=== PATIENT | female | born 2000 | race Caucasian/White ===

== ENCOUNTER 2019-05-17 12:51 | Emergency (ER) | payer MEDICAID, OTHER ==
[~2019-05-17] VITALS: Ht 171.5 cm; Wt 64.3 kg
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
[2019-05-17] MEDS ORDERED: IBUP-1780 PO (13:47)
[2019-05-17] MEDS ORDERED: AMOX1TAB12 PO (13:47)
[2019-05-17] MEDS ORDERED: TRAM50TA2 PO (13:47)
[2019-05-17 13:55] VITALS: BP 124/73
== END 2019-05-17 13:55 | disposition home or self-care (01) ==
LOC: ER FS 12:53
DX: S00.83XA Contusion of other part of head, initial encounter (principal); S00.03XA Contusion of scalp, initial encounter; S10.93XA Contusion of unspecified part of neck, initial encounter; S02.5XXA Fracture of tooth (traumatic), initial encounter for closed fracture; T74.11XA Adult physical abuse, confirmed, initial encounter; K08.89 Other specified disorders of teeth and supporting structures; Y04.8XXA Assault by other bodily force, initial encounter; Y07.03 Male partner, perpetrator of maltreatment and neglect
CPT/HCPCS: 99282

== ENCOUNTER 2021-01-05 12:40 | Emergency (ER) | payer MEDICAID ==
[~2021-01-05] VITALS: Ht 162 cm; Wt 68.0 kg
[~2021-01-05 12:40] MED LIST: AMOX1TAB12 PO; IBUP-1780 PO; TRM50T PO
[2021-01-05 12:45] VITALS: BP 130/68
[2021-01-05 12:59] LABS: BILIRUBIN,URINE NEGATIVE (NEGATIVE); CLARITY,URINE CLEAR; COLOR,URINE YELLOW; GLUCOSE, URINE (UA) NEGATIVE (NEGATIVE); KETONES,URINE NEGATIVE (NEGATIVE); LEUKOCYTE ESTERASE ,URINE TRACE (NEGATIVE); NITRITE,URINE NEGATIVE (NEGATIVE); PROTEIN,URINE NEGATIVE (NEGATIVE)
[2021-01-05 13:00] LABS: BACTERIA,URINE TRACE /HPF
[2021-01-05] MEDS ORDERED: CYCL10TA9 PO (13:15)
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
--- NOTE | 2021-01-05 14:03 | Diagnostic Imaging Report ---
INDICATION: Back pain. TIME OF EXAM: 12:59 PM. FINDINGS: Three views of the lumbar spine show normal curvature and alignment. The vertebral body heights and disc spaces are well-maintained. No fracture or subluxation is identified. IMPRESSION: No acute bony abnormality is detected. Dictated by: Dictated on workstation # [id number]
== END 2021-01-05 13:18 | disposition home or self-care (01) ==
LOC: EDUNIT# 12:40 → ER FS 12:42
DX: M54.5 Low back pain (principal); J45.909 Unspecified asthma, uncomplicated; F17.210 Nicotine dependence, cigarettes, uncomplicated
CPT/HCPCS: 72100; 81000; 84703

== ENCOUNTER 2022-06-14 12:58 | Emergency (ER) | payer MEDICAID ==
[~2022-06-14] VITALS: Ht 167.7 cm; Wt 72.7 kg
[~2022-06-14 12:58] MED LIST changes: +CYCL10TA25 PO
[2022-06-14 13:02] VITALS: BP 128/76
--- NOTE | 2022-06-14 13:13 | ED GI ---
General Stated Complaint: NAUSEA;VOMITING History of Present Illness Date Seen by Provider: Jun 14, 2022 Time Seen by Provider: 13:13 Initial Comments 22-year-old female presents with nausea and vomiting. Patient reports that she is approximately 9 weeks . That she thinks she is having severe morning sickness. Is been going on for at least a week to 10 days. She had this with her previous . She was seen by her primary care provider and was given a 1 week Zofran prescription but has had minimal improvement. She reports that she has an appointment with her stave grader next week. She has maybe some mild chills. She reports is very similar to her previous pregnancies morning sickness. Patient presents today because she reports that she is having a hard time keeping anything down. Allergies and Home Medications Allergies Coded Allergies: No Known Drug Allergies (Unverified , 05/17/19) Patient Home Medication List Home Medication List Reviewed: Yes Amoxicillin/Potassium Clav (Amox Tr-K Clv 875-125 mg Tab) 1 Each Tablet, 1 EACH PO BID Prescribed by: CHRISTINA ARMANDO on 05/17/19 1347 Cyclobenzaprine HCl (Cyclobenzaprine HCl) 10 Mg Tablet, 10 MG PO Q8H PRN for SPASMS Prescribed by: BETO CASILLAS on 01/05/21 1315 Ibuprofen (Ibuprofen) 800 Mg Tablet, 800 MG PO Q8H PRN for PAIN Prescribed by: CHRISTINA ARMANDO on 05/17/19 1347 Tramadol HCl (Tramadol HCl) 50 Mg Tablet, 50 MG PO Q6H PRN for PAIN Prescribed by: CHRISTINA ARMANDO on 05/17/19 1347 Review of Systems Review of Systems Constitutional: chills, fever (subjective) Respiratory: Denies Cough, Denies Shortness of Air Cardiovascular: Denies Chest Pain, Denies Palpitations Gastrointestinal: See HPI, Nausea, Vomiting Genitourinary: No Symptoms Reported Musculoskeletal: no symptoms reported Skin: no symptoms reported Psychiatric/Neurological: No Symptoms Reported Endocrine: No Symptoms Reported Past Xqtiyxx-Trcywf-Xujvuf Hx Seasonal Allergies Seasonal Allergies: No Past Medical History Surgeries: No Respiratory: Yes Asthma Cardiac: No Neurological: No Genitourinary: No Gastrointestinal: No Musculoskeletal: No Endocrine: No HEENT: No Cancer: No Psychosocial: Yes Anxiety, Depression Integumentary: No Physical Exam Vital Signs Vital Signs - First Documented 06/14/22 13:02 Temp 36.4 Pulse 109 Resp 16 B/P (MAP) 128/76 (93) O2 Delivery Room Air Capillary Refill : Height/Weight/BMI Height: '" Weight: lbs. oz. kg; 25.00 BMI Method: General Appearance: WD/WN, no apparent distress Neck: full range of motion, supple Respiratory: lungs clear, normal breath sounds Cardiovascular: normal peripheral pulses, regular rate, rhythm Gastrointestinal: soft; No distended, No guarding Neurologic/Psychiatric: alert, normal mood/affect, oriented x 3 Skin: normal color, warm/dry Progress/Results/Core Measures Results/Orders Lab Results Laboratory Tests Test 06/14/22 13:24 Range/Units Influenza Type A (RT-PCR) Not Detected Not Detecte Influenza Type B (RT-PCR) Not Detected Not Detecte My Orders Orders - KAREN ROSAS DO Promethazine Injection (Phenergan Injec (06/14/22 13:16) Lactated Ringers (Lr 1000 Ml Iv Solution (06/14/22 13:16) Influenza A And B By Pcr (06/14/22 13:16) Famotidine Injection (Pepcid Injection) (06/14/22 13:45) Vital Signs/I&O 06/14/22 13:02 Temp 36.4 Pulse 109 Resp 16 B/P (MAP) 128/76 (93) O2 Delivery Room Air Progress Progress Note : Progress Note Patient is feeling significantly better following treatment. At this time she would like to try to go home and see how she does. Patient will be discharged with doxylamine and some Phenergan suppositories for as needed. Patient should keep her OB appointment on Saturday. She should return to the ER as needed Departure Impression Primary Impression: Hyperemesis gravidarum Disposition: HOME, SELF-CARE Condition: Stable Departure-Patient Inst. Referrals: CLAIRE GU (PCP) Primary Care Physician [facility] (Family) Primary Care Physician Patient Instructions: Hyperemesis Gravidarum Add. Discharge Instructions: Clear liquid diet, advance as tolerated. You may also try Benadryl 50 mg every 6 hours. Please keep your appointment with your stave grader next week. Return to the ER as needed Scripts Promethazine HCl (Promethazine Tablet) 25 Mg Tablet 25 MG PO Q12H PRN for NAUSEA/VOMITING, #5 TAB 0 Refills Prov: KAREN ROSAS DO 06/14/22 Doxylamine Succinate/Vit B6 (Doxylamine-Pyridoxine 10-10 mg) 10 Mg-10 Mg Tablet.dr 1 EACH PO Q4H PRN for NAUSEA/VOMITING-1ST LINE, #30 TAB Prov: KAREN ROSAS DO 06/14/22 KAREN ROSAS DO Jun 14, 2022 13:13
[2022-06-14] MEDS ORDERED: PROMETHAZINE INJ 25 MG/ML (PHENERGAN) AMP IVP STA (13:16)
[2022-06-14] MEDS ORDERED: LACTATED RINGERS 1,000 ML IV STA (13:16)
[2022-06-14] MEDS ORDERED: FAMOTIDINE 20MG/2ML IV (PEPCID) IV STA (13:45)
[2022-06-14] MEDS ORDERED: DOXY1TAB8 PO (14:08)
[2022-06-14] MEDS ORDERED: PROM25TA14 PO (14:08)
== END 2022-06-14 14:12 | disposition home or self-care (01) ==
LOC: EDUNIT# 12:58 → ER FS 13:00
DX: O21.0 Mild hyperemesis gravidarum (principal); Z28.310 Unvaccinated for COVID-19; Z3A.09 9 weeks gestation of pregnancy
CPT/HCPCS: 87636; 99283

== ENCOUNTER 2023-02-04 15:40 | Emergency (ER) | payer MEDICAID ==
[~2023-02-04] VITALS: Ht 167 cm; Wt 74.2 kg
[~2023-02-04 15:40] MED LIST changes: +DOXY1TAB8 PO; +PROM25TA14 PO
[2023-02-04 15:49] VITALS: BP 129/69
[2023-02-04] MEDS ORDERED: KETOROLAC 60 MG/2 ML VIAL IM ONE (16:00)
--- NOTE | 2023-02-04 16:18 | Diagnostic Imaging Report ---
PROCEDURE: CT head and CT cervical spine without contrast. TECHNIQUE: Multiple contiguous axial images were obtained through the brain and cervical spine without the use of intravenous contrast. Sagittal and coronal reformations through the cervical spine were then performed. Auto Exposure Controls were utilized during the CT exam to meet ALARA standards for radiation dose reduction. INDICATION: Neck pain and radial palsy. CT HEAD: CT images of the head were obtained. FINDINGS: Ventricles and sulci are within normal limits for size. There is no intracranial hemorrhage identified. There is no abnormal mass effect or shift of midline structures. IMPRESSION: Unremarkable CT of the head. CT CERVICAL SPINE: Multiple contiguous axial CT images of the cervical spine were obtained with sagittal and coronal reformatted images produced. FINDINGS: There is reversal of normal cervical lordosis. Vertebral body heights and disc spaces are maintained. Prevertebral soft tissues are unremarkable, and there is no evidence of paraspinous hematoma. IMPRESSION: Reversal of normal cervical lordosis which may be due to positioning or muscle spasm. There is, otherwise, no CT evidence of acute cervical spinal abnormality. Dictated by: Dictated on workstation # [id number]
[2023-02-04] MEDS ORDERED: METH4TAB10 PO (16:39)
[2023-02-04] MEDS ORDERED: ACHD5005 PO (16:39)
[2023-02-04] MEDS ORDERED: IBUP-1780 PO (16:39)
--- NOTE | 2023-02-04 16:41 | ED General ---
General Chief Complaint: General Problems/Pain Stated Complaint: R ARM PAIN, NECK PAIN Nursing Triage Note: Patient has presented to ER with cc of neck pain and stiffness and numbness in her right forear. She woke up Bo morning with the pain. She denies any known injury or trauma. History of Present Illness Date Seen by Provider: Feb 04, 2023 Time Seen by Provider: 15:49 Initial Comments 22-year-old right-handed female patient with history of normal vaginal delivery 4 weeks ago without breast-feeding complaining of neck pain and right forearm weakness and numbness and wrist drop for the last 3 days. Patient states that she woke up 3 days ago with pain in posterior of her neck as a constant pain and numbness of her right forearm and drop of her wrist that did not get better with movement of her hand. Patient stated she took Aleve and Tylenol without improvement of her pain and rated her pain 7/10. Patient denies other focal neurodeficit, fever and chills, injury, using alcohol or drugs and oversleeping on her right side, history of the same problem. Allergies and Home Medications Allergies Coded Allergies: No Known Drug Allergies (Unverified , 05/17/19) Patient Home Medication List Home Medication List Reviewed: Yes Amoxicillin/Potassium Clav (Amox Tr-K Clv 875-125 mg Tab) 1 Each Tablet, 1 EACH PO BID Prescribed by: CHRISTINA ARMANDO on 05/17/19 1347 Cyclobenzaprine HCl (Cyclobenzaprine HCl) 10 Mg Tablet, 10 MG PO Q8H PRN for SPASMS Prescribed by: BETO CASILLAS on 01/05/21 1315 Doxylamine Succinate/Vit B6 (Doxylamine-Pyridoxine 10-10 mg) 10 Mg-10 Mg Tablet.dr, 1 EACH PO Q4H PRN for NAUSEA/VOMITING-1ST LINE Prescribed by: KAREN ROSAS on 06/14/22 1408 Hydrocodone/Acetaminophen (Hydrocodone-Acetamin 5-325 mg) 5 Mg-325 Mg Tablet, 1 TAB PO Q6H PRN for PAIN-MODERATE (5-7) Prescribed by: Mary cobb on 02/04/23 1641 Ibuprofen (Ibuprofen) 800 Mg Tablet, 800 MG PO Q8H PRN for PAIN Prescribed by: CHRISTINA ARMANDO on 05/17/19 1347 Ibuprofen (Ibuprofen) 800 Mg Tablet, 800 MG PO Q8H PRN for PAIN Prescribed by: Mary cobb on 02/04/23 1639 Methylprednisolone (Methylprednisolone Dose Pack) 4 Mg Tab.ds.pk, 4 MG PO UD Prescribed by: Mary cobb on 02/04/23 1639 Promethazine HCl (Promethazine Tablet) 25 Mg Tablet, 25 MG PO Q12H PRN for NAUSEA/VOMITING Prescribed by: KAREN ROSAS on 06/14/22 1408 Tramadol HCl (Tramadol HCl) 50 Mg Tablet, 50 MG PO Q6H PRN for PAIN Prescribed by: CHRISTINA ARMANDO on 05/17/19 1347 Review of Systems Review of Systems Constitutional: no symptoms reported EENTM: no symptoms reported Respiratory: no symptoms reported Cardiovascular: no symptoms reported Gastrointestinal: no symptoms reported Genitourinary: no symptoms reported Musculoskeletal: see HPI Skin: no symptoms reported Psychiatric/Neurological: See HPI All Other Systems Reviewed Negative Unless Noted: Yes Past Nmlwfpp-Qyvdxw-Czpowz Hx Patient Social History Tobacco Use?: Yes Tobacco type used: Cigarettes Substance use?: No Alcohol Use?: No Seasonal Allergies Seasonal Allergies: No Past Medical History Surgeries: No Respiratory: Yes Asthma Cardiac: No Neurological: No Genitourinary: No Gastrointestinal: No Musculoskeletal: No Endocrine: No HEENT: No Cancer: No Psychosocial: Yes Anxiety, Depression Integumentary: No Physical Exam Vital Signs Vital Signs - First Documented 02/04/23 15:49 Temp 36.9 Pulse 90 Resp 10 B/P (MAP) 129/69 (89) Pulse Ox 100 O2 Delivery Room Air Capillary Refill : Height, Weight, BMI Height: '" Weight: lbs. oz. kg; 26.00 BMI Method: General Appearance: No Apparent Distress HEENT: PERRL/EOMI, Normal ENT Inspection, Pharynx Normal Neck: Normal Inspection, Non Tender, Supple; No Tender Midline Respiratory: Chest Non Tender, Lungs Clear, Normal Breath Sounds Cardiovascular: Regular Rate, Rhythm, No Edema, No Gallop Back: Normal Inspection, No CVA Tenderness Extremity: Normal Capillary Refill, Non Tender, Other (Right wrist drop and hypoesthesia of elbow down to the fingers) Neurologic/Psychiatric: Alert, Oriented x3, Normal Mood/Affect, Motor Weakness (Right wrist drop) Skin: Normal Color, Warm/Dry Lymphatic: No Adenopathy Progress/Results/Core Measures Suspected Sepsis SIRS Temperature: Pulse: 90 Respiratory Rate: 10 Blood Pressure 129 /69 Mean: 89 Results/Orders My Orders Orders - MARY COBB MD Ct Head/Cervical Spine Wo (02/04/23 15:56) Ketorolac Injection (Toradol Injection) (02/04/23 16:00) Medications Given in ED Current Medications Medications Dose Ordered Sig/Markus Route Start Time Stop Time Status Last Admin Dose Admin Ketorolac Tromethamine 60 mg ONCE ONCE IM 02/04/23 16:00 02/04/23 16:01 DC 02/04/23 16:14 60 MG Vital Signs/I&O 02/04/23 15:49 Temp 36.9 Pulse 90 Resp 10 B/P (MAP) 129/69 (89) Pulse Ox 100 O2 Delivery Room Air Capillary Refill : Blood Pressure Mean: 89 Progress Note : Progress Note Patient with right wrist drop and neck pain for the last 3 days that did not get better. Patient had unremarkable CT head and cervical spine. Patient treated with Toradol IM in ER( no ride to go home). Patient had right wrist drop and Velcro wrist splint was applied. Patient advised to follow-up with primary care physician for possible ordering physical therapy and apply ice on her neck. Prescription for Medrol Dosepak and ibuprofen and [place] was given. Patient advised to move her hands frequently. Plan to discharge patient home with diagnosis of Saturday night radial palsy. Diagnostic Imaging Diagonstic Imaging: CT Plain Films/CT/US/NM/MRI: head (And cervical spine) Comments CT head and cervical spine interpreted by radiologist and reviewed by me and did not show acute finding. [facility] [place], [place] NAME: [facility] REC#: [id number] PT STATUS: REG ER : 2000 PHYSICIAN: MARY COBB MD ADMIT DATE: 02/04/23/ER FS Draft Date of Exam:02/04/23 CT HEAD/CERVICAL SPINE WO PROCEDURE: CT head and CT cervical spine without contrast. TECHNIQUE: Multiple contiguous axial images were obtained through the brain and cervical spine without the use of intravenous contrast. Sagittal and coronal reformations through the cervical spine were then performed. Auto Exposure Controls were utilized during the CT exam to meet ALARA standards for radiation dose reduction. INDICATION: Neck pain and radial palsy. CT HEAD: CT images of the head were obtained. FINDINGS: Ventricles and sulci are within normal limits for size. There is no intracranial hemorrhage identified. There is no abnormal mass effect or shift of midline structures. IMPRESSION: Unremarkable CT of the head. CT CERVICAL SPINE: Multiple contiguous axial CT images of the cervical spine were obtained with sagittal and coronal reformatted images produced. FINDINGS: There is reversal of normal cervical lordosis. Vertebral body heights and disc spaces are maintained. Prevertebral soft tissues are unremarkable, and there is no evidence of paraspinous hematoma. IMPRESSION: Reversal of normal cervical lordosis which may be due to positioning or muscle spasm. There is, otherwise, no CT evidence of acute cervical spinal abnormality. Dictated on workstation # [id number] Dict: 02/04/23 1614 Trans: 02/04/23 1617 [id number] Interpreted by: NOLVIA VILLAGRAN MD Electronically signed by: Departure Impression Primary Impression: Acute radial nerve palsy of right upper extremity Additional Impressions: Acute cervical myofascial strain Qualified Codes: S16.1XXA - Strain of muscle, fascia and tendon at neck level, initial encounter Right wrist drop Disposition: HOME, SELF-CARE Condition: Stable Departure-Patient Inst. Referrals: CLAIRE GU (PCP) Primary Care Physician [facility]DENISE (Family) Primary Care Physician Patient Instructions: Radial Nerve Entrapment, Cervical Sprain ED Add. Discharge Instructions: Apply ice on your neck Follow-up with your primary care physician in 2 to 3 days for possible physical therapy of your right upper extremity Use provided wrist splint Return to ER as needed All discharge instructions reviewed with patient and/or family. Voiced understanding. Scripts Hydrocodone/Acetaminophen (Hydrocodone-Acetamin 5-325 mg) 5 Mg-325 Mg Tablet 1 TAB PO Q6H PRN for PAIN-MODERATE (5-7), #12 TAB Prov: MARY COBB MD 02/04/23 Methylprednisolone (Methylprednisolone Dose Pack) 4 Mg Tab.ds.pk 4 MG PO UD for asthma for 6 Days, #21 PKG PER DOSE PACK INSTRUCTIONS Prov: MARY COBB MD 7/24/23 Ibuprofen (Ibuprofen) 800 Mg Tablet 800 MG PO Q8H PRN for PAIN, #30 TAB 0 Refills Prov: MARY COBB MD 02/04/23 MARY COBB MD Feb 04, 2023 16:41
== END 2023-02-04 16:43 | disposition home or self-care (01) ==
LOC: EDUNIT# 15:40 → ER FS 15:41
DX: O9A.23 Injury, poisoning and certain other consequences of external causes complicating the puerperium (principal); S16.1XXA Strain of muscle, fascia and tendon at neck level, initial encounter; O90.89 Other complications of the puerperium, not elsewhere classified; G56.31 Lesion of radial nerve, right upper limb; M21.331 Wrist drop, right wrist; O99.335 Smoking (tobacco) complicating the puerperium; F17.210 Nicotine dependence, cigarettes, uncomplicated; X58.XXXA Exposure to other specified factors, initial encounter
CPT/HCPCS: 70450; 72125

== ENCOUNTER 2023-03-20 20:21 | Emergency (ER) | payer MEDICAID ==
[~2023-03-20] VITALS: Ht 170 cm; Wt 72.5 kg
[~2023-03-20 20:21] MED LIST changes: +ACHD5005 PO; +METH4TAB10 PO
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
[2023-03-20 21:09] LABS: BASOPHILS # (AUTO) 0.1 10^3/uL (0.0-0.1); BASOPHILS % (AUTO) 0 % (0-10); EOSINOPHILS # (AUTO) 0.3 10^3/uL (0.0-0.3); EOSINOPHILS % (AUTO) 1 % (0-10); HEMATOCRIT 39 % (35-52); HEMOGLOBIN 12.1 g/dL (11.5-16.0); LYMPHOCYTES # (AUTO) 1.8 10^3/uL (1.0-4.0); LYMPHOCYTES % (AUTO) 10 % (12-44); MEAN CORPUSCULAR HEMOGLOBIN 26 pg (25-34); MEAN CORPUSCULAR HGB CONC 31 g/dL (32-36); MEAN CORPUSCULAR VOLUME 82 fL (80-99); MEAN PLATELET VOLUME 10.2 fL (9.0-12.2); MONOCYTES # (AUTO) 0.6 10^3/uL (0.0-1.0); MONOCYTES % (AUTO) 4 % (0-12); NEUTROPHILS # (AUTO) 14.9 10^3/uL (1.8-7.8); NEUTROPHILS % (AUTO) 83 % (42-75); PLATELET COUNT 309 10^3/uL (130-400)
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
[2023-03-20 21:14] LABS: PROTHROMBIN TIME PATIENT 13.5 SEC (12.2-14.7)
[2023-03-20 21:18] LABS: CHLORIDE 108 MMOL/L (98-107); POTASSIUM 4.2 MMOL/L (3.6-5.0); SODIUM 140 MMOL/L (135-145)
[2023-03-20 21:19] LABS: ALBUMIN 4.4 GM/DL (3.2-4.5)
[2023-03-20 21:20] LABS: CALCIUM 9.6 MG/DL (8.5-10.1)
[2023-03-20 21:21] LABS: TRIGLYCERIDES 83 MG/DL (<150); VLDL CHOLESTEROL 17 MG/DL (5-40)
[2023-03-20 21:22] LABS: CARBON DIOXIDE 22 MMOL/L (21-32); GLUCOSE 92 MG/DL (70-105); TOTAL PROTEIN 7.2 GM/DL (6.4-8.2)
[2023-03-20 21:23] LABS: BILIRUBIN,TOTAL 0.4 MG/DL (0.1-1.0)
[2023-03-20 21:24] LABS: FIBRIN DEGRADATION PRODUCTS 11.59 UG/ML (0.00-0.49); PHOSPHORUS 2.6 MG/DL (2.3-4.7)
[2023-03-20 21:25] LABS: ALKALINE PHOSPHATASE 74 U/L (40-136); CREATININE SERUM 0.77 MG/DL (0.60-1.30); GFR ESTIMATED 111
[2023-03-20 21:26] LABS: BILIRUBIN,DIRECT 0.1 MG/DL (0.0-0.3); BILIRUBIN,INDIRECT 0.3 MG/DL; BUN/CREATININE RATIO 12; CHOLESTEROL 141 MG/DL (< 200)
[2023-03-20 21:27] LABS: HDL CHOLESTEROL 49 MG/DL (40-60)
[2023-03-20 21:28] LABS: ALANINE AMINOTRANSFERASE 257 U/L (0-55); MAGNESIUM 2.3 MG/DL (1.6-2.4)
[2023-03-20 21:29] LABS: CREATINE KINASE 246 U/L (29-168)
[2023-03-20 21:47] LABS: EOSINOPHILS % (MANUAL) 3 %; LYMPHOCYTES % (MANUAL) 15 %; MONOCYTES % (MANUAL) 4 %; NEUTROPHILS % (MANUAL) 78 %
[2023-03-20 21:48] LABS: ANISOCYTOSIS SLIGHT; HYPOCHROMASIA SLIGHT
[2023-03-20] MEDS ORDERED: fentaNYL INJECTION 100 MCG/2 ML VIAL ONE (21:59)
[2023-03-20] MEDS ORDERED: fentaNYL INJECTION 100 MCG/2 ML VIAL IVP ONE (22:00)
[2023-03-20] MEDS ORDERED: Tetanus/Diphtheria/Pertussis (Acell) ADULT Vaccine 0.5 ML IM ONE (22:00)
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
[2023-03-20 22:19] LABS: AMORPHOUS SEDIMENT,UR MOD AMOR PHOSPHATE /LPF; BACTERIA,URINE FEW /HPF; BILIRUBIN,URINE NEGATIVE (NEGATIVE); CLARITY,URINE CLEAR; COLOR,URINE YELLOW; GLUCOSE, URINE (UA) NEGATIVE (NEGATIVE); KETONES,URINE NEGATIVE (NEGATIVE); LEUKOCYTE ESTERASE ,URINE NEGATIVE (NEGATIVE); NITRITE,URINE NEGATIVE (NEGATIVE); PROTEIN,URINE NEGATIVE (NEGATIVE); WBC,URINE RARE /HPF
[2023-03-20 22:21] LABS: AMPHETAMINE SCREEN, URINE NEGATIVE (NEGATIVE); BARBITURATE SCREEN URINE NEGATIVE (NEGATIVE); BENZODIAZEPINES SCREEN URINE NEGATIVE (NEGATIVE); CANNABINOID SCREEN, URINE NEGATIVE (NEGATIVE); COCAINE SCREEN URINE NEGATIVE (NEGATIVE); METHADONE STAT NEGATIVE (NEGATIVE); OPIATE SCREEN URINE POSITIVE (NEGATIVE); OXYCODONE STAT NEGATIVE (NEGATIVE); PROPOXYPHENE STAT NEGATIVE (NEGATIVE); TRICYCLIC ANTIDEPRESSANTS SCRE NEGATIVE (NEGATIVE)
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
[2023-03-20 22:45] VITALS: BP 122/68
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
[2023-03-21] MEDS ORDERED: NS IV 1000 ML 1,000 ML IV SCH (00:30)
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
== END 2023-03-20 22:45 | disposition short-term general hospital (02) ==
LOC: EDUNIT# 20:21 → ER 20:21
DX: S32.019A Unspecified fracture of first lumbar vertebra, initial encounter for closed fracture (principal); S32.029A Unspecified fracture of second lumbar vertebra, initial encounter for closed fracture; S32.039A Unspecified fracture of third lumbar vertebra, initial encounter for closed fracture; M54.2 Cervicalgia; F17.210 Nicotine dependence, cigarettes, uncomplicated; V68.5XXA Driver of heavy transport vehicle injured in noncollision transport accident in traffic accident, initial encounter; Y92.410 Unspecified street and highway as the place of occurrence of the external cause
CPT/HCPCS: 70450; 71045; 71260; 72125; 72128; 72131; 72170; 74177; 80053; 80061; 80076; 80306; 81000; 82550; 83605; 83735; 83874; 84100; 84703; 85007; 85027; 85379; 85384; 85610; 85730; 86850; 86900; 86901; 86920; 99284; G0480; 36415; 80320

== ENCOUNTER 2023-05-30 11:10 | Emergency (ER) | payer MEDICAID ==
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
[2023-05-30 11:18] VITALS: BP 110/79
[2023-05-30] MEDS ORDERED: dexAMETHasone INJ 10 MG/ML 1 ML VIAL IM ONE (11:30)
[2023-05-30] MEDS ORDERED: KETOROLAC INJ 30 MG/ML VIAL IM ONE (11:45)
[2023-05-30] MEDS ORDERED: CYCL10TA25 PO (11:54)
[2023-05-30] MEDS ORDERED: NAPR-1070 PO (11:54)
== END 2023-05-30 12:03 | disposition home or self-care (01) ==
LOC: EDUNIT# 11:10 → ER FS 11:14
DX: M62.830 Muscle spasm of back (principal); Z87.828 Personal history of other (healed) physical injury and trauma
CPT/HCPCS: 96372; 99284

== ENCOUNTER 2023-06-23 13:37 | Emergency (ER) | payer SELFPAY ==
[~2023-06-23] VITALS: Ht 170 cm; Wt 71.2 kg
[~2023-06-23 13:37] MED LIST changes: +NAPR-1070 PO
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
--- NOTE | 2023-06-23 14:18 | Diagnostic Imaging Report ---
EXAMINATION: Lumbosacral spine 2 or 3 views HISTORY: Back pain COMPARISON: 01/05/2021 FINDINGS: There are mild L3, L2 and L1 compression fracture. Unchanged from CT dated 03/20/2023. Disc heights are normal. IMPRESSION: 1. Mild L1-L3 compression fractures are unchanged from 03/20/2023. Dictated by: Dictated on workstation # [id number]
[2023-06-23] MEDS ORDERED: ACHD5005 PO (14:24)
[2023-06-23 14:32] VITALS: BP 135/86
== END 2023-06-23 14:26 | disposition home or self-care (01) ==
LOC: EDUNIT# 13:37 → ER FS 13:39
DX: S32.010D Wedge compression fracture of first lumbar vertebra, subsequent encounter for fracture with routine healing (principal); S32.020D Wedge compression fracture of second lumbar vertebra, subsequent encounter for fracture with routine healing; S32.030D Wedge compression fracture of third lumbar vertebra, subsequent encounter for fracture with routine healing; V49.9XXD Car occupant (driver) (passenger) injured in unspecified traffic accident, subsequent encounter
CPT/HCPCS: 72100